=== PATIENT | female | born 1940 | race Caucasian/White ===

== ENCOUNTER 2020-06-07 12:58 | Outpatient (REF) | payer MEDICARE, OTHER, SELFPAY ==
[2020-06-07 13:45] LABS: MANUAL DIFF FLAG NO
[2020-06-07 13:46] LABS: Basophils Percent Auto 0.2 % (0-2); Eosinophils Absolute Auto 0.1 X10*3/uL (0.0-0.4); Hematocrit 40.8 % (37-47); Hemoglobin 13.5 g/dl (12.0-16.0); Imm Gran Abs Auto 0.02 X10*3/uL (0.00-0.03); Imm Gran Pct Auto 0.2 % (0.0-0.4); Lymphocytes Absolute Auto 1.3 X10*3/uL (1.2-4.9); Lymphocytes Percent Auto 16.4 % (20-40); Mean Corpuscular HGB Conc 33.1 g/dl (31.0-35.0); Mean Corpuscular Hemoglobin 31.5 pg (27.0-33.0); Mean Corpuscular Volume 95.1 fL (80-98); Mean Platelet Volume 9.7 fL (9.4-12.3); Monocytes Absolute Auto 0.6 X10*3/uL (0.1-1.2); Monocytes Percent Auto 7.6 % (2-11); Neutrophils Percent Auto 74.6 % (45-73); Platelet Count 296 X10*3/uL (160-400); Red Blood Count 4.29 X10*6/uL (4.20-5.50); Red Cell Distribution Width 13.9 % (11.0-16.0)
[2020-06-07 14:34] LABS: Erythrocyte Sedimentation Rate 20 MM/HR (0-20)
[2020-06-07 14:57] LABS: Alanine Aminotransferase 26 U/L (0-31); Albumin Level 3.8 g/dL (3.5-5.0); Alkaline Phosphatase 123 U/L (39-117); Anion Gap 12 (12-20); Aspartate Amino Transferase 23 U/L (5-31); Bilirubin Total 0.4 mg/dL (0.0-1.0); Blood Urea Nitrogen 20 mg/dL (9-16); C Reactive Protein 0.22 mg/dL (< or = 0.50); Calcium 8.9 mg/dL (8.4-10.2); Carbon Dioxide 26 mmol/L (22-29); Chloride 107 mmol/L (96-108); Estimated Glomerular Filt Rate > 60; Glucose Random 85 mg/dL (60-115); Potassium 3.9 mmol/l (3.3-5.1); Sodium 141 mmol/L (135-145); Total Protein 6.3 g/dL (6.5-8.0)
== END 2020-06-07 12:59 | disposition home or self-care (01) ==
LOC: HO.LAB 12:58
PROVIDERS: PCP Internal Medicine; Visit Provider Student in an Organized Health Care Education/Training Program
DX: M05.9 Rheumatoid arthritis with rheumatoid factor, unspecified (principal); Z79.899 Other long term (current) drug therapy
CPT/HCPCS: 36415; 80053; 85025; 85652; 86140

== ENCOUNTER → 2020-06-14 14:23 | Outpatient (BNVA) | payer MEDICARE, SELFPAY | PROVIDERS: PCP Internal Medicine; Referring Provider Internal Medicine; Visit Provider Student in an Organized Health Care Education/Training Program | DX: M05.9 Rheumatoid arthritis with rheumatoid factor, unspecified (principal); Z79.899 Other long term (current) drug therapy | CPT/HCPCS: 99212 ==

== ENCOUNTER → 2020-09-20 09:59 | Outpatient (BNVA) | payer MEDICARE, SELFPAY | PROVIDERS: Visit Provider Student in an Organized Health Care Education/Training Program | DX: M05.9 Rheumatoid arthritis with rheumatoid factor, unspecified (principal); Z79.899 Other long term (current) drug therapy | CPT/HCPCS: 99212 ==

== ENCOUNTER 2020-09-28 13:45 | Outpatient (REF) | payer MEDICARE, OTHER, SELFPAY ==
[2020-09-28 14:52] LABS: MANUAL DIFF FLAG NO
[2020-09-28 14:53] LABS: Basophils Percent Auto 0.3 % (0-2); Eosinophils Absolute Auto 0.1 X10*3/uL (0.0-0.4); Eosinophils Percent Auto 0.7 % (0-4); Hemoglobin 13.6 g/dl (12.0-16.0); Imm Gran Abs Auto 0.01 X10*3/uL (0.00-0.03); Imm Gran Pct Auto 0.1 % (0.0-0.4); Lymphocytes Absolute Auto 1.6 X10*3/uL (1.2-4.9); Lymphocytes Percent Auto 24.3 % (20-40); Mean Corpuscular HGB Conc 32.4 g/dl (31.0-35.0); Mean Corpuscular Hemoglobin 30.2 pg (27.0-33.0); Mean Corpuscular Volume 93.1 fL (80-98); Mean Platelet Volume 9.7 fL (9.4-12.3); Monocytes Absolute Auto 0.6 X10*3/uL (0.1-1.2); Monocytes Percent Auto 8.3 % (2-11); Neutrophils Absolute Auto 4.5 X10*3/uL (2.0-8.3); Neutrophils Percent Auto 66.3 % (45-73); Platelet Count 307 X10*3/uL (160-400); Red Blood Count 4.51 X10*6/uL (4.20-5.50); White Blood Count 6.7 X10*3/uL (4.8-10.8)
[2020-09-28 15:19] LABS: Alanine Aminotransferase 15 U/L (0-31); Albumin Level 4.1 g/dL (3.5-5.0); Alkaline Phosphatase 121 U/L (39-117); Anion Gap 13 (12-20); Aspartate Amino Transferase 16 U/L (5-31); Bilirubin Total 0.7 mg/dL (0.0-1.0); Blood Urea Nitrogen 23 mg/dL (9-16); C Reactive Protein 0.08 mg/dL (< or = 0.50); Calcium 9.8 mg/dL (8.4-10.2); Carbon Dioxide 26 mmol/L (22-29); Chloride 105 mmol/L (96-108); Estimated Glomerular Filt Rate > 60; Glucose Random 87 mg/dL (60-115); Potassium 4.9 mmol/L (3.3-5.1); Sodium 139 mmol/L (135-145); Total Protein 6.7 g/dL (6.5-8.0)
[2020-09-28 15:26] LABS: Glucose Urine UA NEG (NEG); Leukocyte Esterase Urine NEG (NEG); Nitrite Urine NEG (NEG); Specific Gravity - Urine 1.025 (1.005-1.025); Urine Blood NEG (NEG); Urine Ketones NEG (NEG); Urine Protein NEG (NEG-TRACE)
[2020-09-28 16:09] LABS: Erythrocyte Sedimentation Rate 14 MM/HR (0-20)
[2020-09-28 16:10] LABS: Appearance Urine CLEAR; Color Urine YELLOW
[2020-09-28 17:00] LABS: RBC Urine 0 /HPF (0); Squamous Epithelial Cell Urine 2+ /LPF
[2020-09-28 17:01] LABS: Renal Epithelial Cells Urine 1+ /LPF
== END 2020-09-28 13:46 | disposition home or self-care (01) ==
LOC: HO.LAB 13:45
PROVIDERS: PCP Internal Medicine; Visit Provider Student in an Organized Health Care Education/Training Program
DX: M05.9 Rheumatoid arthritis with rheumatoid factor, unspecified (principal)
CPT/HCPCS: 36415; 80053; 81001; 85025; 85652; 86140

== ENCOUNTER 2021-01-26 11:00 | Outpatient (REF) | payer MEDICARE, SELFPAY ==
[2021-01-26 12:17] LABS: MANUAL DIFF FLAG NO
[2021-01-26 12:20] LABS: Basophils Percent Auto 0.2 % (0-2); Eosinophils Absolute Auto 0.1 X10*3/uL (0.0-0.4); Eosinophils Percent Auto 1.7 % (0-4); Hematocrit 41.1 % (37-47); Hemoglobin 13.7 g/dl (12.0-16.0); Imm Gran Abs Auto 0.01 X10*3/uL (0.00-0.03); Imm Gran Pct Auto 0.2 % (0.0-0.4); Lymphocytes Absolute Auto 1.3 X10*3/uL (1.2-4.9); Lymphocytes Percent Auto 24.8 % (20-40); Mean Corpuscular HGB Conc 33.3 g/dl (31.0-35.0); Mean Corpuscular Hemoglobin 31.6 pg (27.0-33.0); Mean Corpuscular Volume 94.9 fL (80-98); Mean Platelet Volume 9.4 fL (9.4-12.3); Monocytes Absolute Auto 0.3 X10*3/uL (0.1-1.2); Monocytes Percent Auto 6.2 % (2-11); Neutrophils Absolute Auto 3.5 X10*3/uL (2.0-8.3); Neutrophils Percent Auto 66.9 % (45-73); Platelet Count 289 X10*3/uL (160-400); Red Blood Count 4.33 X10*6/uL (4.20-5.50); Red Cell Distribution Width 14.6 % (11.0-16.0); White Blood Count 5.2 X10*3/uL (4.8-10.8)
[2021-01-26 14:09] LABS: Alanine Aminotransferase 20 U/L (0-31); Alkaline Phosphatase 137 U/L (39-117); Anion Gap 12 (12-20); Aspartate Amino Transferase 25 U/L (5-31); Bilirubin Total 0.4 mg/dL (0.0-1.0); Blood Urea Nitrogen 25 mg/dL (9-16); C Reactive Protein 0.17 mg/dL (< or = 0.50); Calcium 9.8 mg/dL (8.4-10.2); Carbon Dioxide 27 mmol/L (22-29); Chloride 107 mmol/L (96-108); Estimated Glomerular Filt Rate > 60; Glucose Random 78 mg/dL (60-115); Potassium 4.6 mmol/L (3.3-5.1); Sodium 141 mmol/L (135-145); Total Protein 6.6 g/dL (6.5-8.0)
== END 2021-01-26 11:01 | disposition home or self-care (01) ==
LOC: HO.LAB 11:00
PROVIDERS: PCP Internal Medicine; Visit Provider Student in an Organized Health Care Education/Training Program
DX: M05.9 Rheumatoid arthritis with rheumatoid factor, unspecified (principal)
CPT/HCPCS: 36415; 80053; 85025; 86140

== ENCOUNTER → 2021-01-31 11:10 | Outpatient (BNVA) | payer MEDICARE, SELFPAY | PROVIDERS: PCP Internal Medicine; Visit Provider Student in an Organized Health Care Education/Training Program | DX: M05.9 Rheumatoid arthritis with rheumatoid factor, unspecified (principal); Z79.899 Other long term (current) drug therapy | CPT/HCPCS: 99212 ==

== ENCOUNTER 2021-11-05 10:27 | Outpatient (REF) | payer MEDICARE, SELFPAY ==
[2021-11-05 11:55] LABS: MANUAL DIFF FLAG NO
[2021-11-05 12:26] LABS: Basophils Percent Auto 0.2 % (0-2); Eosinophils Percent Auto 0.3 % (0-4); Hematocrit 41.9 % (37.0-47.0); Hemoglobin 13.8 g/dl (12.0-16.0); Imm Gran Abs Auto 0.02 X10*3/uL (0.00-0.03); Imm Gran Pct Auto 0.3 % (0.0-0.4); Lymphocytes Absolute Auto 1.3 X10*3/uL (1.2-4.9); Lymphocytes Percent Auto 21.6 % (20-40); Mean Corpuscular HGB Conc 32.9 g/dl (31.0-35.0); Mean Corpuscular Hemoglobin 31.7 pg (27.0-33.0); Mean Corpuscular Volume 96.1 fL (80.0-98.0); Mean Platelet Volume 9.5 fL (9.4-12.3); Monocytes Absolute Auto 0.3 X10*3/uL (0.1-1.2); Monocytes Percent Auto 5.8 % (2-11); Neutrophils Absolute Auto 4.2 x10*3/uL (2.0-8.3); Neutrophils Percent Auto 71.8 % (45-73); Platelet Count 343 X10*3/uL (160-400); Red Blood Count 4.36 X10*6/uL (4.20-5.50); Red Cell Distribution Width 14.3 % (11.0-16.0); White Blood Count 5.8 X10*3/uL (4.8-10.8)
[2021-11-05 13:10] LABS: Erythrocyte Sedimentation Rate 27 MM/HR (0-20)
[2021-11-05 13:23] LABS: Alanine Aminotransferase 19 U/L (0-31); Aspartate Amino Transferase 21 U/L (5-31); C Reactive Protein 0.65 mg/dL (< or = 0.50); Estimated Glomerular Filt Rate > 60
== END 2021-11-05 10:28 | disposition home or self-care (01) ==
LOC: HO.LAB 10:27
PROVIDERS: PCP Internal Medicine; Visit Provider Internal Medicine Rheumatology
DX: M05.9 Rheumatoid arthritis with rheumatoid factor, unspecified (principal); M81.0 Age-related osteoporosis without current pathological fracture; R26.81 Unsteadiness on feet; Z79.899 Other long term (current) drug therapy
CPT/HCPCS: 36415; 82565; 84450; 84460; 85025; 85652; 86140; 99212

== ENCOUNTER → 2022-04-22 10:11 | Outpatient (BNVA) | payer MEDICARE, SELFPAY | PROVIDERS: PCP Internal Medicine; Visit Provider Internal Medicine Rheumatology | DX: M05.9 Rheumatoid arthritis with rheumatoid factor, unspecified (principal); M81.0 Age-related osteoporosis without current pathological fracture; R26.81 Unsteadiness on feet; R11.0 Nausea; Z79.899 Other long term (current) drug therapy | CPT/HCPCS: 99212 ==

== ENCOUNTER 2022-06-18 12:22 | Outpatient (REF) | payer MEDICARE, SELFPAY ==
[2022-06-18 13:34] LABS: MANUAL DIFF FLAG NO
[2022-06-18 13:39] LABS: Basophils Percent Auto 0.3 % (0-2); Eosinophils Absolute Auto 0.1 X10*3/uL (0.0-0.4); Hematocrit 42.5 % (37.0-47.0); Hemoglobin 14.1 g/dl (12.0-16.0); Imm Gran Abs Auto 0.02 X10*3/uL (0.00-0.03); Imm Gran Pct Auto 0.3 % (0.0-0.4); Lymphocytes Absolute Auto 1.5 X10*3/uL (1.2-4.9); Lymphocytes Percent Auto 25.8 % (20-40); Mean Corpuscular HGB Conc 33.2 g/dl (31.0-35.0); Mean Corpuscular Hemoglobin 31.5 pg (27.0-33.0); Mean Corpuscular Volume 94.9 fL (80.0-98.0); Mean Platelet Volume 9.6 fL (9.4-12.3); Monocytes Absolute Auto 0.4 X10*3/uL (0.1-1.2); Monocytes Percent Auto 6.4 % (2-11); Neutrophils Absolute Auto 3.9 x10*3/uL (2.0-8.3); Neutrophils Percent Auto 66.2 % (45-73); Platelet Count 357 X10*3/uL (160-400); Red Blood Count 4.48 X10*6/uL (4.20-5.50); Red Cell Distribution Width 13.5 % (11.0-16.0); White Blood Count 5.9 X10*3/uL (4.8-10.8)
[2022-06-18 13:56] LABS: Alanine Aminotransferase 14 U/L (0-31); Aspartate Amino Transferase 19 U/L (5-31); C Reactive Protein 0.12 mg/dL (< or = 0.50); Estimated Glomerular Filt Rate > 60
[2022-06-18 14:29] LABS: Erythrocyte Sedimentation Rate 23 MM/HR (0-20)
== END 2022-06-18 12:23 | disposition home or self-care (01) ==
LOC: HO.10HDL 12:22
PROVIDERS: Visit Provider Internal Medicine Rheumatology
DX: M05.9 Rheumatoid arthritis with rheumatoid factor, unspecified (principal); M81.0 Age-related osteoporosis without current pathological fracture; L30.9 Dermatitis, unspecified; Z79.899 Other long term (current) drug therapy
CPT/HCPCS: 36415; 82565; 84450; 84460; 85025; 85652; 86140; 99212

== ENCOUNTER 2022-11-01 10:16 | Outpatient (REF) | payer MEDICARE, SELFPAY ==
[2022-11-01 10:34] LABS: MANUAL DIFF FLAG NO
[2022-11-01 11:06] LABS: Basophils Percent Auto 0.4 % (0-2); Eosinophils Absolute Auto 0.1 X10*3/uL (0.0-0.4); Eosinophils Percent Auto 2.1 % (0-4); Hematocrit 44.7 % (37.0-47.0); Hemoglobin 14.8 g/dl (12.0-16.0); Imm Gran Abs Auto 0.01 X10*3/uL (0.00-0.03); Imm Gran Pct Auto 0.2 % (0.0-0.4); Lymphocytes Absolute Auto 1.2 X10*3/uL (1.2-4.9); Lymphocytes Percent Auto 25.8 % (20-40); Mean Corpuscular HGB Conc 33.1 g/dl (31.0-35.0); Mean Corpuscular Hemoglobin 31.2 pg (27.0-33.0); Mean Corpuscular Volume 94.3 fL (80.0-98.0); Mean Platelet Volume 9.7 fL (9.4-12.3); Monocytes Absolute Auto 0.4 X10*3/uL (0.1-1.2); Monocytes Percent Auto 8.8 % (2-11); Neutrophils Percent Auto 62.7 % (45-73); Platelet Count 239 X10*3/uL (160-400); Red Blood Count 4.74 X10*6/uL (4.20-5.50); Red Cell Distribution Width 14.2 % (11.0-16.0); White Blood Count 4.8 X10*3/uL (4.8-10.8)
[2022-11-01 11:25] LABS: Alanine Aminotransferase 12 U/L (0-31); Aspartate Amino Transferase 18 U/L (5-31); C Reactive Protein < 0.10 mg/dL (< or = 0.50); Estimated Glomerular Filt Rate > 60
[2022-11-01 11:56] LABS: Erythrocyte Sedimentation Rate 19 MM/HR (0-20)
== END 2022-11-01 10:17 | disposition home or self-care (01) ==
LOC: HO.LAB 10:16
PROVIDERS: Visit Provider Internal Medicine Rheumatology
DX: M05.9 Rheumatoid arthritis with rheumatoid factor, unspecified (principal); Z79.899 Other long term (current) drug therapy
CPT/HCPCS: 36415; 82565; 84450; 84460; 85025; 85652; 86140

== ENCOUNTER 2023-03-10 12:02 | Outpatient (AMB) | payer MEDICARE, SELFPAY ==
--- NOTE | 2023-03-10 12:04 | MHC.OFFVIS ---
Intake Intake Visit Reasons: Hx of kidney stones Intake Note: New Patient presents for initial visit for history of incontinence Urology Medications: none Blood thinner: aspirin PVR: 0ml's Talent Manager Required: No Accompanied by: Self / Same As Patient Allergies wine spirit Allergy (Severe, Verified 03/10/23 12:32) triangle rash on codeine Allergy (Intermediate, Verified 03/10/23 12:32) Vomiting penicillin V Allergy (Intermediate, Verified 03/10/23 12:32) Rash mold Allergy (Intermediate, Uncoded 03/10/23 12:32) Rash mildew Allergy (Mild, Uncoded 03/10/23 12:32) rash Medication List - Last Reconciled 03/10/23 by MARY Bernal- alendronate 70 mg PO QWEEK aspirin 81 mg PO DAILY atorvastatin 40 mg PO BEDTIME cane As directed folic acid 1 mg PO DAILY loratadine 10 mg PO DAILY PRN losartan 50 mg PO DAILY methotrexate sodium 15 mg (6 x 2.5 mg) PO QWEEK triamcinolone acetonide 0.1% 1 appl topical BID HPI HPI Comments History of Present Illness Details Yuly is a very pleasant 82-year-old female patient of Dr. Petty. She has a past medical history of allergic rhinitis, history of CT stented in 2019, hyperlipidemia, hypertension, osteoporosis, seropositive rheumatoid arthritis, and unsteady gait. She presents to the office today as a new patient for history of nephrolithiasis and urinary incontinence. In discussion with the patient today she reports having had multiple urologists in the past including Dr. Casanova as well as Dr. Davalos. She discusses having had a a an office cystoscopy in the past however does not recall exactly why this was performed. She denies any previous surgical history for nephrolithiasis. She reports noting worsening urinary incontinence over the last 3 years. She reports utilizing approximately 3 Guillermina pads and liners a day. She denies having trialed any lifestyle modifications and or medications in the past. When asked she denies hematuria, dysuria, foul smelling urine, changes to urinary stream, flank pain, fever, and or chills. In office urinalysis with 2+ leukocytes positive nitrates. PVR 0 mL. Discussed obtaining retroperitoneal ultrasound for further assessment evaluation. Will send for urine for urine culture. Discussed possible near future in office cystoscopy if symptoms persist and/or worsen. Discussed at length lifestyle modifications, pelvic floor therapy, and or trial of medications. She otherwise offers no issues or concerns at this time. [facility] Medical History Allergic rhinitis History of CT (myocardial infarction) Hyperlipidemia Hypertension Osteoporosis Seropositive rheumatoid arthritis Unsteady gait Surgical History (Updated 11/05/21 @ 10:52 by Jun Lucero MD) History of parathyroidectomy History of right hemicolectomy Social History Alcohol intake: current Patient Tobacco Use Status: Former Tobacco user Tobacco use type: Cigarette Review of Systems Const Reports as per HPI Eyes Reports no additional complaints ENT Reports no additional complaints Card Reports as per HPI Resp Reports no additional complaints GI Reports no additional complaints Reports as per HPI Musc Reports as per HPI Neuro Reports as per HPI Psych Reports no additional complaints Endo Reports no additional complaints Aller/Immun Reports as per HPI Physical Exam Const General: cooperative, healthy appearing, comfortable, no acute distress, well developed, alert and awake Orientation/consciousness: patient oriented x3 Limitations: ambulation with cane HEENT Head: Yes normal to inspection, Yes normocephalic and Yes atraumatic Ears: hearing grossly normal bilaterally Eyes General: appearance normal, both eyes and all related structures Neck Neck: Yes normal visual inspection and Yes trachea midline Chest Chest palpation & inspection: normal inspection of the chest Resp Effort & Inspection: normal respiratory effort and able to speak in complete sentences Cardio Rate: regular rate GI Inspection: Yes normal to inspection General: Yes no CVA tenderness Back/Spine/Pelvis Back: no CVA tenderness Skin General skin exam: no rashes or lesions noted Neuro General: patient oriented x3 Extrem General: Yes normal to inspection Psych Appearance: grossly normal and well kempt Mental Status: mental status grossly normal Speech and movement: Normal speech and movement present and Clear speech present Affect: normal affect Attitude: cooperative Thought process: Normal thought process present Thought content: Normal thought content present Insight: Good insight present (Psych) Judgement: Good judgement present (Psych) Office Procedures Post Void Residual Post Residual Void Post Void Residual (PVR): 0 24427-[id number] Void Residual by ultrasound Results AMB Urinalysis, Automated UA Leukoctes 125 Opal/uL Last Edit by Eduardo Villa on 03/10/23 12:27 UA Nitrite Last Edit by Brandyce Allen on 03/10/23 12:27 UA Urobilinogen 0.2 mg/dL Last Edit by Axxess Pharmayce Brepedro on 03/10/23 12:27 UA Protein 0 mg/dL Last Edit by Brandyce Allen on 03/10/23 12:27 UA pH 6.0 Last Edit by Axxess Pharmayce Bress on 03/10/23 12:27 UA Blood 0 Jair/uL Last Edit by Axxess Pharmayce Brepedro on 03/10/23 12:27 UA Specific [place] 1.015 Last Edit by Axxess Pharmayce Brepedro on 03/10/23 12:27 UA Ketone Negative Last Edit by Axxess Pharmayce IndexTankpedro on 03/10/23 12:27 UA Bilirubin 0 mg/dL Last Edit by Axxess Pharmavirgie Villa on 03/10/23 12:27 UA Glucose 0 mg/dL Last Edit by Axxess Pharmaycwalter Villa on 03/10/23 12:27 Results Reviewed Results Reviewed: Laboratory Last Values Urine pH (Auto) 6.0 03/10/23 12:25 Specific [place] (Auto) 1.015 03/10/23 12:25 Urine Protein (Auto) 0 mg/dL 03/10/23 12:25 Glucose (UA)(Auto) 0 mg/dL 03/10/23 12:25 Urine Ketones (Auto) Negative 03/10/23 12:25 Urine Blood (Auto) 0 Jair/uL 03/10/23 12:25 Urine Bilirubin (Auto) 0 mg/dL 03/10/23 12:25 Urine Urobilinogen (Auto) 0.2 mg/dL 03/10/23 12:25 Leukocyte Esterase (Auto) 125 Opal/uL 03/10/23 12:25 Assessment & Plan Assessment & Plan (1) Urinary incontinence: Code(s): R32 - Unspecified urinary incontinence (2) Nephrolithiasis: Code(s): N20.0 - Calculus of kidney (3) Urinary tract infection: Code(s): N39.0 - Urinary tract infection, site not specified Plan In office urinalysis results reviewed with the patient today; as noted above. Will send for urine culture. Discussed at length lifestyle modifications, pelvic floor therapy, and or medications to assist with urinary incontinence. Will obtain retroperitoneal ultrasound for further assessment evaluation. Start tolterodine 2 mg daily as discussed and prescribed. Patient denies any UTI like symptoms at this time will await culture results to treat if needed. Discussed at length importance of drinking plenty of water daily. Follow-up in 6 weeks with PVR and imaging to be completed prior; or sooner with any questions, concerns, and or issues. Orders: Orders Urine Culture Today R32 - Unspecified urinary incontinence AMB Urinalysis Automated Today Z13.9 - Encounter for screening, unspecified AMB Post Void Residual by ultrasound Today Z13.9 - Encounter for screening, unspecified Medications: New tolterodine ER 2 mg PO DAILY 30 days 30 caps 1RF R39.15 - Urgency of urination Patient Instructions: The patient had an opportunity to ask questions regarding the treatment plan. All questions were answered. Physical exam, labs, and imaging were discussed and reviewed in detail. As well as risks, benefits, and discussion of treatment choices. No major barriers to understanding were identified. The patient expressed understanding and agreement with the above treatment plan. The patient was made aware they should contact our office by phone for worsening of their current condition, the appearance of new symptoms, or with any questions or concerns. Compliance is encouraged with any medications and follow up testing that is ordered. It is a privilege to be allowed the opportunity to participate in? your urological care.? Again, if you have any questions or concerns If you have any questions or concerns please do not hesitate to contact me. The office is [phone]. This note is constructed using voice recognition software. While every effort has been made to ensure accuracy feeder switchboard operator errors may have been included. Yours sincerely, EWA Bernal Coding Level of Care Code New Pt Level 4 (36469) Diagnoses Urinary incontinence R32 Nephrolithiasis N20.0 Urinary tract infection N39.0 CPT Codes Post Residual Void - PVR CPT Code: 81247-Ykgv Void Residual by ultrasound ([id number])
== END 2023-03-10 13:25 | disposition home or self-care (01) ==
PROVIDERS: PCP Internal Medicine; Visit Provider Nurse Practitioner Family
DX: R32 Unspecified urinary incontinence (principal); N20.0 Calculus of kidney; N39.0 Urinary tract infection, site not specified
CPT/HCPCS: 99204

== ENCOUNTER 2023-03-10 12:02 | Outpatient (REF) | payer MEDICARE, SELFPAY | END 2023-03-10 12:03 | disposition home or self-care (01) | LOC: HO.LNP 12:02 | PROVIDERS: PCP Internal Medicine; Visit Provider Nurse Practitioner Family | DX: R32 Unspecified urinary incontinence (principal); N20.0 Calculus of kidney; N39.0 Urinary tract infection, site not specified | CPT/HCPCS: 51798; 87086; 87088; 87186; 99202 ==

== ENCOUNTER 2023-03-31 10:37 | Outpatient (AMB) | payer MEDICARE, SELFPAY ==
--- NOTE | 2023-03-31 10:43 | A.OFFVIS_ITS ---
Intake Vital Signs 03/31/23 10:44 Height 5 ft 3 in Weight 123 lb 10.869 oz BMI 21.9 BP 118/78 Blood Pressure Location Rt brachial Position Sitting Pulse 68 Pulse Source Pulse Oximeter Temp 98.1 F Temp Source Skin Pulse Oximetry (%) 93 Oxygen Delivery Method Room Air Intake Visit Reasons: RA Intake Note: Here to follow up on RA. c/o new distortions on fingers. New bumps on fingers. 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 I had last seen her in June. We have her up to 15 mg weekly methotrexate. She reports still stiffness and swelling in her hands. She is concerned that this could represent irreversible deformities. Most symptomatic is the right hand more than the left hand particularly across the MCP joints. She also has pains in the feet and the ankles. She has been seeing Urology recently because of recurrent UTI. [facility] Medical History Allergic rhinitis History of [place] (myocardial infarction) Hyperlipidemia Hypertension Osteoporosis Seropositive rheumatoid arthritis Unsteady gait Surgical History History of parathyroidectomy History of right hemicolectomy Social History Alcohol intake: current Patient Tobacco Use Status: Former Tobacco user Tobacco use type: Cigarette Review of Systems Const Details: Negative for appetite change, weight change, fever, chills, malaise and fatigue Eyes Details: Negative for vision change, dry eyes,headaches and dizziness ENT Details: Negative for hearing change, tinnitus, oral ulcer, nose bleeds and oral dryness. Card Details: Negative chest pain, edema and syncope Resp Details: Negative for SOB, cough and wheezing GI Details: Negative indigestion/heartburn, nausea, abdominal pain, bowel changes, diarrhea, constipation and bloody stool. Details: Some recurrent UTI recently re-treated. Presently negative for dysuria, hematuria, nocturia, decreased force/flow and genital discharge Endo Details: Negative for polyuria and polydypsia Rubin/Lymph Details: Negative for excessive bruising or bleeding. Physical Exam Vital Signs: Last Vital Signs Temp 98.1 F 03/31/23 10:44 Pulse 68 03/31/23 10:44 BP 118/78 03/31/23 10:44 Pulse Ox 93 03/31/23 10:44 Oxygen Delivery Method Room Air 03/31/23 10:44 BMI result Body Mass Index 21.9 APPEARANCE: Patient in no acute distress EYES no redness, pupils equal and reactive to light, eyelids normal SKIN: No inflammatory or neoplastic lesions. Normal color and turgor JOINT EXAM: Cervical Spine:.? Full range of motion with slight discomfort.? No tenderness. Thoracic Spine:.? No scoliosis.? No tenderness on palpation. Lumbar Spine:.? Alignment normal.? Mild pain with extremes of motion.? No tenderness. Chest Wall:.? No tenderness, swelling, increased warmth or erythema. Hands:? Right:? There is mild tenderness and mild to moderate swelling in all of the MCP joints. There is some flexion deformity and ulnar deviation as well.? There is some soft tissue swelling and bony enlargement in the PIP joints. The 2nd and through 4th have mild tenderness. There is mild bony enlargement tenderness at the 3rd and 5th D IP joints.? No flexor tendon triggering, thenar atrophy or sensory loss.? Left:? Mild pain with range of motion at the thumb and 5th finger.? There is mild swelling with ulnar deviations of all the MCP joints, these are all mildly tender today.? There is mild soft tissue swelling of the 2nd, 3rd and 4th PIP's and in the 5th there is mild tenderness.? There is no flexor tendon triggering or tenderness, thenar atrophy or sensory loss. Wrists:? Mild pain with flexion extension at 75 degrees with some mild tenderness but no swelling, increased warmth or erythema. Elbows:. Normal pain-free range of motion without tenderness, swelling, increased warmth or erythema. Shoulders:.?? Full range of motion without pain. No tenderness, weakness, swelling, increased warmth or erythema. Hips:? Right:? Slight decrease in extremes of internal external rotation but no pain with motion.? No groin tenderness or mass.? Left:? Full range of motion w ithout pain. Hip bursa:.? No tenderness. Knees:?? Normal pain-free range of motion with mild patellofemoral crepitus.? There is some slight medial tenderness but no effusion, soft tissue swelling, increased warmth or erythema.? Ankles:? Normal pain-free range of motion with mild medial lateral tenderness but no swelling, increased warmth or erythema. Feet:? Mild 1st MTP bony enlargement bilaterally without tenderness.? The other joints in the foot have normal pain-free range of motion without tenderness, swelling, increased warmth or erythema. Tender points:? No tenderness to digital palpation at the occiput, trapezius, second rib, lateral epicondyle, knees, greater trochanter and gluteal area bilaterally. ? Results Reviewed Results Reviewed: The 02/07/2023 lab work from [facility]: Hemoglobin 13.5, white count 7.1, creatinine 0.68, SGOT 20, SGPT 23 Assessment & Plan Assessment & Plan (1) long term care social worker methotrexate user: Code(s): Z79.899 - Other senior living (current) drug therapy (2) Seropositive rheumatoid arthritis: Comment: Onset 2013.RF, SUJEY, CCP, SS-A pos GI ulcer on Plaquenil -stopped. leflunomide caused BP elevation - stopped. methotrexate started early 2020 Code(s): M05.9 - Rheumatoid arthritis with rheumatoid factor, unspecified Plan Rheumatoid arthritis, longstanding with still quite a bit of tenderness in the MCP joints. She says she is able to do housework and take care of herself at this point. She has had some recent urinary tract infection which makes us not confident about adding more immunosuppression with a TNF inhibitor. I think we will see if the blood work looks okay today and possibly increase the methotrexate further. She was warned that she needs to be diligent about blood work so we can monitor her for side effects. She will get blood work today and if that looks okay we will consider increasing her methotrexate. Follow-up in 2 months with blood work before that is recommended. Orders: Orders Alanine Aminotransferase Today M05.9 - Rheumatoid arthritis with rheumatoid factor, unspecified, Z79.899 - Other long term care social worker (current) drug therapy Aspartate Amino Transferase Today M05.9 - Rheumatoid arthritis with rheumatoid factor, unspecified, Z79.899 - Other long term care social worker (current) drug therapy Creatinine Today M05.9 - Rheumatoid arthritis with rheumatoid factor, unspecified, Z79.899 - Other long term care social worker (current) drug therapy C Reactive Protein Today M05.9 - Rheumatoid arthritis with rheumatoid factor, unspecified Complete Blood Count Auto Diff Today M05.9 - Rheumatoid arthritis with rheumatoid factor, unspecified, Z79.899 - Other long term care social worker (current) drug therapy Erythrocyte Sedimentation Rate Today M05.9 - Rheumatoid arthritis with rheumatoid factor, unspecified Alanine Aminotransferase Today M05.9 - Rheumatoid arthritis with rheumatoid factor, unspecified, Z79.899 - Other long term care social worker (current) drug therapy Aspartate Amino Transferase Today M05.9 - Rheumatoid arthritis with rheumatoid factor, unspecified, Z79.899 - Other senior living (current) drug therapy Creatinine Today M05.9 - Rheumatoid arthritis with rheumatoid factor, unspecified, Z79.899 - Other long term care social worker (current) drug therapy C Reactive Protein Today M05.9 - Rheumatoid arthritis with rheumatoid factor, unspecified Complete Blood Count Auto Diff Today M05.9 - Rheumatoid arthritis with rheumatoid factor, unspecified, Z79.899 - Other senior living (current) drug therapy Erythrocyte Sedimentation Rate Today M05.9 - Rheumatoid arthritis with rheumatoid factor, unspecified Medications: Changed From methotrexate sodium 15 mg (6 x 2.5 mg) PO QWEEK 24 tabs 0RF M05.9 - Rheumatoid arthritis with rheumatoid factor, unspecified To methotrexate sodium 20 mg (8 x 2.5 mg) PO QWEEK 32 tabs 1RF M05.9 - Rheumatoid arthritis with rheumatoid factor, unspecified Coding Level of Care Code Est Pt Level 3 (22630) Diagnoses half-way methotrexate user Z79.899 Seropositive rheumatoid arthritis M05.9
[2023-03-31 10:44] VITALS: BP 118/78; PULSE 68; TEMP 36.7; O2SAT 93; BMI 21.9
== END 2023-03-31 11:30 | disposition home or self-care (01) ==
LOC: HO.RHE 10:37
PROVIDERS: PCP Internal Medicine; Visit Provider Internal Medicine Rheumatology
DX: M05.79 Rheumatoid arthritis with rheumatoid factor of multiple sites without organ or systems involvement (principal); Z79.899 Other long term (current) drug therapy
CPT/HCPCS: 99214

== ENCOUNTER → 2023-03-31 10:37 | Outpatient (BNVA) | payer MEDICARE, SELFPAY | PROVIDERS: PCP Internal Medicine; Visit Provider Internal Medicine Rheumatology ==

== ENCOUNTER 2023-03-31 11:41 | Outpatient (REF) | payer MEDICARE, SELFPAY ==
[2023-03-31 13:11] LABS: MANUAL DIFF FLAG NO
[2023-03-31 13:21] LABS: Basophils Percent Auto 0.3 % (0-2); Eosinophils Absolute Auto 0.1 X10*3/uL (0.0-0.4); Eosinophils Percent Auto 1.5 % (0-4); Hematocrit 41.3 % (37.0-47.0); Hemoglobin 13.6 g/dl (12.0-16.0); Imm Gran Abs Auto 0.01 X10*3/uL (0.00-0.03); Imm Gran Pct Auto 0.2 % (0.0-0.4); Lymphocytes Absolute Auto 1.3 X10*3/uL (1.2-4.9); Lymphocytes Percent Auto 20.4 % (20-40); Mean Corpuscular HGB Conc 32.9 g/dl (31.0-35.0); Mean Corpuscular Hemoglobin 31.9 pg (27.0-33.0); Mean Corpuscular Volume 96.9 fL (80.0-98.0); Monocytes Absolute Auto 0.5 X10*3/uL (0.1-1.2); Neutrophils Absolute Auto 4.6 x10*3/uL (2.0-8.3); Neutrophils Percent Auto 70.6 % (45-73); Platelet Count 325 X10*3/uL (160-400); Red Blood Count 4.26 X10*6/uL (4.20-5.50); White Blood Count 6.5 X10*3/uL (4.8-10.8)
[2023-03-31 13:31] LABS: Alanine Aminotransferase 24 U/L (0-31); Aspartate Amino Transferase 27 U/L (5-31); C Reactive Protein < 0.10 mg/dL (< or = 0.50); Estimated Glomerular Filt Rate > 60
[2023-03-31 14:09] LABS: Erythrocyte Sedimentation Rate 20 MM/HR (0-20)
== END 2023-03-31 11:42 | disposition home or self-care (01) ==
LOC: HO.10HDL 11:41
PROVIDERS: Visit Provider Internal Medicine Rheumatology
DX: M05.9 Rheumatoid arthritis with rheumatoid factor, unspecified (principal); Z79.899 Other long term (current) drug therapy
CPT/HCPCS: 36415; 82565; 84450; 84460; 85025; 85652; 86140

== ENCOUNTER 2023-05-22 13:25 | Outpatient (AMB) | payer MEDICARE, SELFPAY ==
--- NOTE | 2023-05-22 13:38 | A.OFFVIS_ITS ---
Intake Intake Visit Reasons: 6 week follow up/ PVR/ US Intake Note: Patient presents for follow up for incontinence Urology Medications: patient hasn't picked up toviaz yet Blood thinner: aspirin PVR:58ml's Gas Dispenser Required: No Accompanied by: Son Allergies wine spirit Allergy (Severe, Verified 05/22/23 18:08) triangle rash on codeine Allergy (Intermediate, Verified 05/22/23 18:08) Vomiting penicillin V Allergy (Intermediate, Verified 05/22/23 18:08) Rash mold Allergy (Intermediate, Uncoded 05/22/23 18:08) Rash mildew Allergy (Mild, Uncoded 05/22/23 18:08) rash Medication List - Last Reconciled 05/22/23 by MARY Bernal- alendronate 70 mg PO QWEEK aspirin 81 mg PO DAILY atorvastatin 40 mg PO BEDTIME cane As directed famotidine 20 mg PO BID PRN folic acid 1 mg PO DAILY loratadine 10 mg PO DAILY PRN losartan 50 mg PO DAILY methotrexate sodium 20 mg (8 x 2.5 mg) PO QWEEK tolterodine ER 2 mg PO DAILY 30 days triamcinolone acetonide 0.1% 1 appl topical BID HPI HPI Comments History of Present Illness Details Yuly is a very pleasant 83-year-old female patient of Dr. Petty was accompanied by her son at today's office visit. She has a past medical history of allergic rhinitis, history of ME stented in 2019, hyperlipidemia, hypertension, osteoporosis, seropositive rheumatoid arthritis, and unsteady gait. She presents to the office today for a follow up. Of note, patient was seen approximately 2 months ago as a new patient for history of nephrolithiasis and urinary incontinence at which time a retroperitoneal ultrasound was ordered and the patient was started on Toviaz. In discussion with the patient today she reports to not have had imaging performed as she has been in and out of the hospital at [facility] for ongoing lower back/spine pain. She reports having gone to the pharmacy and being told Toviaz would be approximately 100 dollars for one-month supply and she is not able to afford this. She reports having had multiple urologists in the past including Dr. Casanova as well as Dr. Davalos. She discusses having had a a an office cystoscopy in the past however does not recall exactly why this was performed. She denies any previous surgical history for nephrolithiasis. She reports noting worsening urinary incontinence over the last 3 years. She reports utilizing approximately 3 Guillermina pads and liners a day. She denies having trialled any lifestyle modifications and or medications in the past. When asked she denies hematuria, dysuria, foul smelling urine, changes to urinary stream, flank pain, fever, and or chills. In office urinalysis results reviewed with the patient today. PVR 54 mL. Discussed importance of obtaining retroperitoneal ultrasound for further assessment evaluation. Discussed possible near future in office cystoscopy if symptoms persist and/or worsen. Discussed at length lifestyle modifications, pelvic floor therapy, and or trial of medications. She otherwise offers no issues or concerns at this time. [facility] Medical History Unsteady gait Hypertension History of ME (myocardial infarction) Osteoporosis Allergic rhinitis Hyperlipidemia Seropositive rheumatoid arthritis Surgical History History of right hemicolectomy History of parathyroidectomy Social History Alcohol intake: current Patient Tobacco Use Status: Former Tobacco user Tobacco use type: Cigarette Review of Systems Const Reports as per HPI Eyes Reports no additional complaints ENT Reports no additional complaints Card Reports as per [facility] Resp Reports no additional complaints GI Reports no additional complaints Reports as per HPI Musc Reports as per [facility] Neuro Reports as per HPI Psych Reports no additional complaints Endo Reports no additional complaints Aller/Immun Reports as per HPI Physical Exam Const General: cooperative, healthy appearing, comfortable, no acute distress, well developed, alert and awake Orientation/consciousness: patient oriented x3 Limitations: ambulation with cane HEENT Head: Yes normal to inspection, Yes normocephalic and Yes atraumatic Ears: hearing grossly normal bilaterally Eyes General: appearance normal, both eyes and all related structures Neck Neck: Yes normal visual inspection and Yes trachea midline Chest Chest palpation & inspection: normal inspection of the chest Resp Effort & Inspection: normal respiratory effort and able to speak in complete sentences Cardio Rate: regular rate GI Inspection: Yes normal to inspection General: Yes no CVA tenderness Back/Spine/Pelvis Back: no CVA tenderness Skin General skin exam: no rashes or lesions noted Neuro General: patient oriented x3 Extrem General: Yes normal to inspection Psych Appearance: grossly normal and well kempt Mental Status: mental status grossly normal Speech and movement: Normal speech and movement present and Clear speech present Affect: normal affect Attitude: cooperative Thought process: Normal thought process present Thought content: Normal thought content present Insight: Good insight present (Psych) Judgement: Good judgement present (Psych) Office Procedures Post Void Residual Post Residual Void Post Void Residual (PVR): 58 [id number]-[id number] Void Residual by ultrasound Results AMB Urinalysis, Automated UA Leukoctes 0 Opal/uL Last Edit by [employer] on 05/22/23 13:55 UA Nitrite Negative Last Edit by [employer] on 05/22/23 13:55 UA Urobilinogen 0.2 mg/dL Last Edit by [employer] on 05/22/23 13:55 UA Protein 15 mg/dL Last Edit by [employer] on 05/22/23 13:55 UA pH 6.0 Last Edit by [employer] on 05/22/23 13:55 UA Blood 0 Jair/uL Last Edit by [employer] on 05/22/23 13:55 UA Specific [place] 1.025 Last Edit by [employer] on 05/22/23 13:55 UA Ketone Negative Last Edit by [employer] on 05/22/23 13:55 UA Bilirubin 1 mg/dL Last Edit by [employer] on 05/22/23 13:55 UA Glucose 0 mg/dL Last Edit by [employer] on 05/22/23 13:55 Results Reviewed Results Reviewed: Laboratory Last Values Urine pH (Auto) 6.0 05/22/23 13:42 Specific [place] (Auto) 1.025 05/22/23 13:42 Urine Protein (Auto) 15 mg/dL 05/22/23 13:42 Glucose (UA)(Auto) 0 mg/dL 05/22/23 13:42 Urine Ketones (Auto) Negative 05/22/23 13:42 Urine Blood (Auto) 0 Jair/uL 05/22/23 13:42 Urine Nitrite (Auto) Negative 05/22/23 13:42 Urine Bilirubin (Auto) 1 mg/dL 05/22/23 13:42 Urine Urobilinogen (Auto) 0.2 mg/dL 05/22/23 13:42 Leukocyte Esterase (Auto) 0 Opal/uL 05/22/23 13:42 Assessment & Plan Assessment & Plan (1) Nephrolithiasis: Code(s): N20.0 - Calculus of kidney (2) Urinary incontinence: Code(s): R32 - Unspecified urinary incontinence Plan In office urinalysis results reviewed with the patient today; as noted above. PVR 54 mL. Discussed at length importance of obtaining retroperitoneal ultrasound for further assessment evaluation. Stop Toviaz Start Tolterodine 2mg daily as discussed and prescribed. Discussed at length lifestyle modifications, pelvic floor therapy, and or medications to assist with urinary incontinence. Discussed at length importance of drinking plenty of water daily. Follow-up in 6 weeks with PVR and imaging to be completed prior; or sooner with any questions, concerns, and or issues. Orders: Orders AMB Urinalysis Automated Today Z13.9 - Encounter for screening, unspecified AMB Post Void Residual by ultrasound Today N39.0 - Urinary tract infection, site not specified Medications: New tolterodine ER 2 mg PO DAILY 30 days 30 caps 1RF R39.15 - Urgency of urination Discontinued fesoterodine ER (Toviaz) Discontinued Reason: Doctor's Order 4 mg PO DAILY 30 days 30 tabs 1RF Patient Instructions: The patient had an opportunity to ask questions regarding the treatment plan. All questions were answered. Physical exam, labs, and imaging were discussed and reviewed in detail. As well as risks, benefits, and discussion of treatment choices. No major barriers to understanding were identified. The patient expressed understanding and agreement with the above treatment plan. The patient was made aware they should contact our office by phone for worsening of their current condition, the appearance of new symptoms, or with any questions or concerns. Compliance is encouraged with any medications and follow up testing that is ordered. It is a privilege to be allowed the opportunity to participate in? your urological care.? Again, if you have any questions or concerns If you have any questions or concerns please do not hesitate to contact me. The office is [phone]. This note is constructed using voice recognition software. While every effort has been made to ensure accuracy door installer errors may have been included. Yours sincerely, EWA Bernal Coding Level of Care Code Est Pt Level 3 (93076) Diagnoses Nephrolithiasis N20.0 Urinary incontinence R32 CPT Codes Post Residual Void - PVR CPT Code: 76000-Hwqo Void Residual by ultrasound ([id number])
== END 2023-05-22 14:12 | disposition home or self-care (01) ==
PROVIDERS: PCP Internal Medicine; Visit Provider Nurse Practitioner Family
DX: N20.0 Calculus of kidney (principal); R32 Unspecified urinary incontinence; Z13.9 Encounter for screening, unspecified
CPT/HCPCS: 99213

== ENCOUNTER → 2023-05-22 13:25 | Outpatient (BNVA) | payer MEDICARE, SELFPAY | PROVIDERS: PCP Internal Medicine; Visit Provider Nurse Practitioner Family | DX: N20.0 Calculus of kidney (principal); R32 Unspecified urinary incontinence | CPT/HCPCS: 51798; 81003; 99212 ==

== ENCOUNTER 2023-05-29 11:30 | Outpatient (AMB) | payer MEDICARE, SELFPAY ==
[2023-05-29 11:31] VITALS: BP 104/70; PULSE 97; TEMP 36.6; O2SAT 98; BMI 21.2
--- NOTE | 2023-05-29 11:31 | A.OFFVIS_ITS ---
Intake Vital Signs 05/29/23 11:31 Height 5 ft 3 in Weight 119 lb 14.903 oz BMI 21.2 BP 104/70 Blood Pressure Location Lt brachial Position Sitting Pulse 97 Pulse Source Pulse Oximeter Temp 97.9 F Temp Source Skin Pulse Oximetry (%) 98 Oxygen Delivery Method Room Air Intake Visit Reasons: ra Intake Note: Patient presents today to follow up on RA. Taking MTX 8 tabs wkly. Would like to discuss new treatment. [employer] Machine Operator Required: No Accompanied by: Self / Same As Patient Allergies wine spirit Allergy (Severe, Verified 05/29/23 11:35) triangle rash on codeine Allergy (Intermediate, Verified 05/29/23 11:35) Vomiting penicillin V Allergy (Intermediate, Verified 05/29/23 11:35) Rash mold Allergy (Intermediate, Uncoded 05/29/23 11:35) Rash mildew Allergy (Mild, Uncoded 05/29/23 11:35) rash Medication List - Last Reconciled 05/29/23 by Jun Lucero MD alendronate 70 mg PO QWEEK aspirin 81 mg PO DAILY atorvastatin 40 mg PO BEDTIME cane As directed famotidine 20 mg PO BID PRN folic acid 1 mg PO DAILY loratadine 10 mg PO DAILY PRN losartan 50 mg PO DAILY methotrexate sodium 20 mg (8 x 2.5 mg) PO QWEEK tolterodine ER 2 mg PO DAILY 30 days triamcinolone acetonide 0.1% 1 appl topical BID-TID HPI HPI Comments History of Present Illness Details The patient returns for evaluation of her rheumatoid arthritis and osteoporosis. She remains on 20 mg weekly methotrexate, folic acid 1 mg daily, alendronate 70 mg once a week and occasional [id number] naproxen. In general the joints have been reasonably comfortable. She does get some lateral hip pain at times when prolonged standing. She also had an episode where she felt her knees locked up and she had a fall. She fell into her linen closet and she says it took or an hour to extricate herself. She does not recall any particular injuries that were incurred with that fall, it was just the great difficulty getting out of the situation that was most upsetting to her. She do es live alone. She has not had any subsequent falls. [facility] Medical History (Updated 05/29/23 @ 13:29 by Jun Lucero MD) Unsteady gait Hypertension History of [place] (myocardial infarction) Osteoporosis Allergic rhinitis Hyperlipidemia Seropositive rheumatoid arthritis Surgical History History of right hemicolectomy History of parathyroidectomy Social History Alcohol intake: current Patient Tobacco Use Status: Former Tobacco user Tobacco use type: Cigarette Review of Systems Const Details: Negative for appetite change, weight change, fever, chills, malaise and fatigue Eyes Details: Negative for vision change, dry eyes,headaches and dizziness ENT Details: Negative for hearing change, tinnitus, oral ulcer, nose bleeds and oral dryness. Card Details: Negative chest pain, edema and syncope Resp Details: Negative for SOB, cough and wheezing GI Details: Negative indigestion/heartburn, nausea, abdominal pain, bowel changes, diarrhea, constipation and bloody stool. Neuro Details: She had the fall as noted above. Negative for epilepsy, palsy, stroke, changes in speech, tingling and weakness Rubin/Lymph Details: Negative for excessive bruising or bleeding. Physical Exam Vital Signs: Last Vital Signs Temp 97.9 F 05/29/23 11:31 Pulse 97 05/29/23 11:31 BP 104/70 05/29/23 11:31 Pulse Ox 98 05/29/23 11:31 Oxygen Delivery Method Room Air 05/29/23 11:31 BMI result Body Mass Index 21.2 APPEARANCE: Patient in no acute distress EYES no redness, pupils equal and reactive to light, eyelids normal. No temporal artery tenderness, redness or swelling. EXTREMITIES: No edema, no calf tenderness, normal peripheral pulses. NEURO: Oriented and alert x3. No focal weakness. Reflexes symmetric. Gait normal. SKIN: No inflammatory or neoplastic lesions. Normal color and turgor JOINT EXAM: Cervical Spine:? Full range of motion with slight discomfort.? No tenderness. Thoracic Spine:? No scoliosis.? No tenderness on palpation. Lumbar Spine:? Alignment normal.? Mild pain with extremes of motion.? No tenderness. Chest Wall:.? No tenderness, swelling, increased warmth or erythema. Hands:? Right:? There is mild swelling in all of the MCP joints. The 1st has mild tenderness. There is some flexion deformity and ulnar deviation as well.? There is some soft tissue swelling and bony enlargement in the PIP joints. The 2nd has mild tenderness. There is mild bony enlargement without tenderness at the 3rd and 5th DIP joints.? No flexor tendon triggering, thenar atrophy or sensory loss.? Left:? Mild pain with range of motion at the thumb and 5th finger.? There is mild swelling with ulnar deviations of all the MCP joints, the 1st MCP is mildly tender today.? There is mild soft tissue swelling of the 2nd, 3rd and 4th PIP's and the 3rd has mild I tenderness.? There is no flexor tendon triggering or tenderness, thenar atrophy or sensory loss. Wrists:? Right: The patient has mild pain with flexion extension at 75 degrees with a small cyst over the dorsum is nontender. This looks like a ganglion cyst. Left: Pain-free range of motion to 75 degrees without swelling or tenderness. Elbows:. Normal pain-free range of motion without tenderness, swelling, increased warmth or erythema. Shoulders:.?? Full range of motion without pain. No tenderness, weakness, swelling, increased warmth or erythema. Hips:? Right:? Slight decrease in extremes of internal external rotation but no pain with motion.? No groin tenderness or mass.? Left:? Full range of motion without pain. Hip bursa:.? Mild left trochanteric tenderness. Knees:?? Normal pain-free range of motion with mild patellofemoral crepitus.? There is some slight medial tenderness but no effusion, soft tissue swelling, increased warmth or erythema.? Ankles:? Right: Normal pain-free range of motion with mild medial and lateral tenderness but no swelling, increased warmth or erythema. Left: Pain-free range of motion without tenderness or swelling. Feet:?Mild 1st MTP bony enlargement bilaterally without tenderness.? The other joints in the foot have normal pain-free range of motion without tenderness, swelling, increased warmth or erythema. Tender points:?No tenderness to digital palpation at the occiput, trapezius, second rib, lateral epicondyle, knees, greater trochanter and gluteal area bilaterally. ? Results Reviewed Results Reviewed: Laboratory Tests 03/31/23 11:50 WBC 6.5 Hgb 13.6 ESR 20 Creatinine 0.68 AST 27 ALT 24 C-Reactive Protein < 0.10 Assessment & Plan Assessment & Plan (1) Osteoporosis: Comment: right humeral and lumbar compression fractures(vertebroplasty) - 2008 DEXA 08/2020 Tscores: LS spine: -0.7; L hip: -3.6 alendronate started 11/2021 Code(s): M81.0 - Age-related osteoporosis without current pathological fracture (2) parts counterman methotrexate user: Code(s): Z79.899 - Other roasterman (current) drug therapy (3) Seropositive rheumatoid arthritis: Comment: Onset 2013.RF, SUJEY, CCP, SS-A pos GI ulcer on Plaquenil -stopped. leflunomide caused BP elevation - stopped. methotrexate started early 2020 Code(s): M05.9 - Rheumatoid arthritis with rheumatoid factor, unspecified Plan Rheumatoid arthritis with still some ulnar deviation and slight thickening in the MCP joints but they are not particularly tender at this juncture. She does not seem to have any side effects we could relate to the methotrexate and pending the lab work we will stay with 20 mg weekly. She is also on the alendronate for her osteoporosis which initially seemed to cause some stomach upset but not recently. This is given for her osteoporosis. We talked about her fall. It sounds as if she might have had some knee or leg pain that preceded it. I told her that she should try to obtain an alert system that she can have in the home to contact family members if she finds she can not get up after a fall. Additionally I think physical therapy would be helpful for her to try to improve muscle strength and balance. She says she is going to see a doctor about that in the next week or 2. We will check lab work today and try to get her to get another set of labs done before next visit in 3 months. Coding Level of Care Code Est Pt Level 3 (25501) Diagnoses Osteoporosis M81.0 parts counterman methotrexate user Z79.899 Seropositive rheumatoid arthritis M05.9
== END 2023-05-29 13:02 | disposition home or self-care (01) ==
PROVIDERS: PCP Internal Medicine; Visit Provider Internal Medicine Rheumatology
DX: M05.79 Rheumatoid arthritis with rheumatoid factor of multiple sites without organ or systems involvement (principal); M81.0 Age-related osteoporosis without current pathological fracture; Z79.899 Other long term (current) drug therapy
CPT/HCPCS: 99213

== ENCOUNTER → 2023-05-29 11:30 | Outpatient (BNVA) | payer MEDICARE, SELFPAY | PROVIDERS: PCP Internal Medicine; Visit Provider Internal Medicine Rheumatology | DX: M81.0 Age-related osteoporosis without current pathological fracture (principal); M05.9 Rheumatoid arthritis with rheumatoid factor, unspecified; Z79.899 Other long term (current) drug therapy | CPT/HCPCS: 99212 ==

== ENCOUNTER 2023-06-06 14:58 | Outpatient (REF) | payer MEDICARE, SELFPAY ==
--- NOTE | ~2023-06-06 | US_ITS ---
EXAMINATION: US RETROPERITONEAL COMPLETE (RENAL) CLINICAL INFORMATION: Calculus of kidney. COMPARISON: Ultrasound retroperitoneal limited 05/09/2021 and 05/01/2020. CT abdomen and pelvis 02/12/2016. TECHNIQUE: Real-time imaging of the kidneys and bladder. Technically limited study secondary to body habitus. FINDINGS: RIGHT KIDNEY: 10.7 x 5.5 x 4.7 cm (SAG x AP x TRV). The kidney is normal in size, contour, and echogenicity. Renal cortical thickness is normal. No calculi or focal parenchymal lesions. No hydronephrosis. LEFT KIDNEY: 11.1 x 5.4 x 3.9 cm (SAG x AP x TRV). The kidney is normal in size, contour, and echogenicity. Renal cortical thickness is normal. No hydronephrosis. Benign-appearing renal cyst measuring 0.7 cm. No follow up imaging is recommended. 2 mm nonobstructing mid pole renal stone. BLADDER: Well distended. Bilateral ureteral jets are demonstrated. Prevoid bladder volume is 186 mL. Postvoid bladder volume is 68.8 mL. A 2.3 cm stone in the bladder versus clustered multiple stones. US/US retroperitoneal comp IMPRESSION: 1. A 2.3 cm stone in the bladder versus clustered multiple stones. 2. A 2 mm nonobstructing left renal stone. 3. Small postvoid bladder residual of 68.8 mL.
== END 2023-06-06 14:59 | disposition home or self-care (01) ==
LOC: HO.US 14:58
PROVIDERS: PCP Internal Medicine; Visit Provider Nurse Practitioner Family
DX: N20.0 Calculus of kidney (principal); N39.0 Urinary tract infection, site not specified; R32 Unspecified urinary incontinence
CPT/HCPCS: 76770

== ENCOUNTER 2023-07-02 13:10 | Outpatient (AMB) | payer MEDICARE, SELFPAY ==
--- NOTE | 2023-07-02 13:20 | A.OFFVIS_ITS ---
Intake Intake Visit Reasons: 6w/US/PVR(set) Intake Note: Patient presents for follow up for incontinence/ultrasound (imaging 06/06/23) Urology Medications: tolterodine Blood thinner: aspirin PVR: 0ml's Informatics Pharmacist Required: No Accompanied by: Self / Same As Patient Allergies wine spirit Allergy (Severe, Verified 07/02/23 14:09) triangle rash on codeine Allergy (Intermediate, Verified 07/02/23 14:09) Vomiting penicillin V Allergy (Intermediate, Verified 07/02/23 14:09) Rash mold Allergy (Intermediate, Uncoded 07/02/23 14:09) Rash mildew Allergy (Mild, Uncoded 07/02/23 14:09) rash Medication List - Last Reconciled 07/02/23 by MARY Bernal- alendronate 70 mg PO QWEEK aspirin 81 mg PO DAILY atorvastatin 40 mg PO BEDTIME cane As directed famotidine 20 mg PO BID PRN folic acid 1 mg PO DAILY loratadine 10 mg PO DAILY PRN losartan 50 mg PO DAILY methotrexate sodium 20 mg (8 x 2.5 mg) PO QWEEK triamcinolone acetonide 0.1% 1 appl topical BID-TID HPI HPI Comments History of Present Illness Details Yuly is a very pleasant 83-year-old female patient of Dr. Petty was accompanied by her son at today's office visit. She has a past medical history of allergic rhinitis, history of [place] stented in 2019, hyperlipidemia, hypertension, osteoporosis, seropositive rheumatoid arthritis, and unsteady gait. She presents to the office today for a follow up of her lower urinary tract symptoms. Of note, patient was seen approximately 6 weeks ago at which time a retroperitoneal ultrasound was ordered for further assessment evaluation. These results were reviewed with the patient today. A 2.3 cm stone in the bladder versus clustered multiple stones. A 2 mm nonobstructing left renal calculi is noted. Small postvoid residual of approximately 70 mL. Discussed further assessment evaluation of bladder stone with in office cystoscopy. During last office visit patient was started on tolterodine 2 mg daily. In discussion with the patient today she reports noting no improvement lower urinary tract symptoms (urinary urgency, urinary frequency, and mixed urinary incontinence) and discusses how expensive the medication was. Discussed trial of other overactive bladder medication however patient does not wish to at this time. Patient has also trialed Toviaz in the past with no improvement in lower urinary tract symptoms. She reports having had multiple urologists in the past including Dr. Casanova as well as Dr. Davalos. She discusses having had a a an office cystoscopy in the past however does not recall exactly why they were performed. She denies any previous surgical history for nephrolithiasis. She reports utilizing approximately 3 Guillermina pads and liners a day. She denies having trialled any lifestyle modifications and or medications in the past. When asked she denies hematuria, dysuria, foul smelling urine, changes to urinary stream, flank pain, fever, and or chills. Unable to obtain urine for urinalysis however PVR 0 mL PVR 54 mL. Discussed at length lifestyle modifications, pelvic floor therapy, and or trial of medications. She otherwise offers no issues or concerns at this time. [facility] Medical History Unsteady gait Hypertension History of SC (myocardial infarction) Osteoporosis Allergic rhinitis Hyperlipidemia Seropositive rheumatoid arthritis Surgical History History of right hemicolectomy History of parathyroidectomy Social History Alcohol intake: current Patient Tobacco Use Status: Former Tobacco user Tobacco use type: Cigarette Review of Systems Const Reports as per HPI Eyes Reports no additional complaints ENT Reports no additional complaints Card Reports as per HPI Resp Reports no additional complaints GI Reports no additional complaints Reports as per HPI Musc Reports as per [facility] Neuro Reports as per HPI Psych Reports no additional complaints Endo Reports no additional complaints Aller/Immun Reports as per HPI Physical Exam Const General: cooperative, healthy appearing, comfortable, no acute distress, well developed, alert and awake Orientation/consciousness: patient oriented x3 Limitations: ambulation with cane HEENT Head: Yes normal to inspection, Yes normocephalic and Yes atraumatic Ears: hearing grossly normal bilaterally Eyes General: appearance normal, both eyes and all related structures Neck Neck: Yes normal visual inspection and Yes trachea midline Chest Chest palpation & inspection: normal inspection of the chest Resp Effort & Inspection: normal respiratory effort and able to speak in complete sentences Cardio Rate: regular rate GI Inspection: Yes normal to inspection General: Yes no CVA tenderness Back/Spine/Pelvis Back: no CVA tenderness Skin General skin exam: no rashes or lesions noted Neuro General: patient oriented x3 Extrem General: Yes normal to inspection Psych Appearance: grossly normal and well kempt Mental Status: mental status grossly normal Speech and movement: Normal speech and movement present and Clear speech present Affect: normal affect Attitude: cooperative Thought process: Normal thought process present Thought content: Normal thought content present Insight: Good insight present (Psych) Judgement: Good judgement present (Psych) Office Procedures Post Void Residual Post Residual Void Post Void Residual (PVR): 0 [id number] Void Residual by ultrasound Results Reviewed Results Reviewed: Date of Service: 06/06/23 EXAMINATION: US RETROPERITONEAL COMPLETE (RENAL) FINDINGS: RIGHT KIDNEY: 10.7 x 5.5 x 4.7 cm (SAG x AP x TRV). The kidney is normal in size, contour, and echogenicity. Renal cortical thickness is normal. No calculi or focal parenchymal lesions. No hydronephrosis. LEFT KIDNEY: 11.1 x 5.4 x 3.9 cm (SAG x AP x TRV). The kidney is normal in size, contour, and echogenicity. Renal cortical thickness is normal. No hydronephrosis. Benign-appearing renal cyst measuring 0.7 cm. No follow up imaging is recommended. 2 mm nonobstructing mid pole renal stone. BLADDER: Well distended. Bilateral ureteral jets are demonstrated. Prevoid bladder volume is 186 mL. Postvoid bladder volume is 68.8 mL. A 2.3 cm stone in the bladder versus clustered multiple stones. IMPRESSION: 1. A 2.3 cm stone in the bladder versus clustered multiple stones. 2. A 2 mm nonobstructing left renal stone. 3. Small postvoid bladder residual of 68.8 mL. Assessment & Plan Assessment & Plan (1) Nephrolithiasis: Code(s): N20.0 - Calculus of kidney (2) Urinary incontinence: Code(s): R32 - Unspecified urinary incontinence (3) Lower urinary tract symptoms: Code(s): R39.9 - Unspecified symptoms and signs involving the genitourinary system (4) Bladder stone: Code(s): N21.0 - Calculus in bladder Plan Unable to obtain urine for urinalysis however PVR 0 mL. Discussed recent retroperitoneal ultrasound results; as noted above. Start vitamin B6 as discussed and prescribed. Stop tolterodine Discussed at length lifestyle modifications, pelvic floor therapy, and or medications to assist with urinary incontinence. Discussed at length importance of drinking plenty of water daily. Discussed adding 1 oz of lemon juice to water daily. Follow-up in the office cystoscopy for further assessment evaluation; or sooner with any issues, concerns, and or questions Orders: Orders AMB Post Void Residual by ultrasound Today R32 - Unspecified urinary incontinence Medications: New pyridoxine (vitamin B6) 100 mg PO DAILY 90 tabs 1RF 90 days Discontinued tolterodine ER Discontinued Reason: Doctor's Order 2 mg PO DAILY 30 days 30 caps 1RF R39.15 - Urgency of urination Patient Instructions: The patient had an opportunity to ask questions regarding the treatment plan. All questions were answered. Physical exam, labs, and imaging were discussed and reviewed in detail. As well as risks, benefits, and discussion of treatment choices. No major barriers to understanding were identified. The patient expressed understanding and agreement with the above treatment plan. The patient was made aware they should contact our office by phone for worsening of their current condition, the appearance of new symptoms, or with any questions or concerns. Compliance is encouraged with any medications and follow up testing that is ordered. It is a privilege to be allowed the opportunity to participate in? your urological care.? Again, if you have any questions or concerns If you have any questions or concerns please do not hesitate to contact me. The office is [phone]. This note is constructed using voice recognition software. While every effort has been made to ensure accuracy hearing aid specialist errors may have been included. Yours sincerely, EWA Bernal Coding Level of Care Code Est Pt Level 4 (05370) Diagnoses Nephrolithiasis N20.0 Urinary incontinence R32 Lower urinary tract symptoms R39.9 Bladder stone N21.0 CPT Codes Post Residual Void - PVR CPT Code: 08445-Xndq Void Residual by ultrasound ([id number])
== END 2023-07-02 14:06 | disposition home or self-care (01) ==
PROVIDERS: PCP Internal Medicine; Visit Provider Nurse Practitioner Family
DX: N20.0 Calculus of kidney (principal); R32 Unspecified urinary incontinence; R39.9 Unspecified symptoms and signs involving the genitourinary system; N21.0 Calculus in bladder
CPT/HCPCS: 99214

== ENCOUNTER → 2023-07-02 13:10 | Outpatient (BNVA) | payer MEDICARE, SELFPAY | PROVIDERS: PCP Internal Medicine; Visit Provider Nurse Practitioner Family | DX: N20.0 Calculus of kidney (principal); N21.0 Calculus in bladder; R32 Unspecified urinary incontinence; R39.9 Unspecified symptoms and signs involving the genitourinary system | CPT/HCPCS: 51798; 99212 ==

== ENCOUNTER 2023-08-07 10:46 | Outpatient (AMB) | payer MEDICARE, SELFPAY ==
--- NOTE | 2023-08-07 10:54 | MHC.OFFVIS ---
Intake Intake Visit Reasons: cysto Intake Note: Patient presents today for a CYSTOSCOPY Procedure: Meds: Vit B6 Allergies to Antibiotic: Penicillin Blood Thinner: Asprin Urinalysis test cleared for Cysto Disposable Uro-G Cystoscope Cannula: Lot: [id number] Exp: 12/15/2024 Hedge Fund Manager Required: No Accompanied by: Self / Same As Patient Allergies wine spirit Allergy (Severe, Verified 08/07/23 11:51) triangle rash on codeine Allergy (Intermediate, Verified 08/07/23 11:51) Vomiting penicillin V Allergy (Intermediate, Verified 08/07/23 11:51) Rash mold Allergy (Intermediate, Uncoded 08/07/23 11:51) Rash mildew Allergy (Mild, Uncoded 08/07/23 11:51) rash HPI HPI Comments History of Present Illness Details 08/07/23-- Yuly is here for office cysto. Review of chart: LV: 07/02/23---Yuly is a very pleasant 83-year-old female patient of Dr. Petty was accompanied by her son at today's office visit. She has a past medical history of allergic rhinitis, history of [place] stented in 2019, hyperlipidemia, hypertension, osteoporosis, seropositive rheumatoid arthritis, and unsteady gait. She presents to the office today for a follow up of her lower urinary tract symptoms. Of note, patient was seen approximately 6 weeks ago at which time a retroperitoneal ultrasound was ordered for further assessment evaluation. These results were reviewed with the patient today. A 2.3 cm stone in the bladder versus clustered multiple stones. A 2 mm nonobstructing left renal calculi is noted. Small postvoid residual of approximately 70 mL. Discussed further assessment evaluation of bladder stone with in office cystoscopy. During last office visit patient was started on tolterodine 2 mg daily. In discussion with the patient today she reports noting no improvement lower urinary tract symptoms (urinary urgency, urinary frequency, and mixed urinary incontinence) and discusses how expensive the medication was. Discussed trial of other overactive bladder medication however patient does not wish to at this time. Patient has also trialed Toviaz in the past with no improvement in lower urinary tract symptoms. She reports having had multiple urologists in the past including Dr. Casanova as well as Dr. Davalos. She discusses having had a a an office cystoscopy in the past however does not recall exactly why they were performed. She denies any previous surgical history for nephrolithiasis. She reports utilizing approximately 3 Guillermina pads and liners a day. She denies having trialled any lifestyle modifications and or medications in the past. When asked she denies hematuria, dysuria, foul smelling urine, changes to urinary stream, flank pain, fever, and or chills. Unable to obtain urine for urinalysis however PVR 0 mL PVR 54 mL. Discussed at length lifestyle modifications, pelvic floor therapy, and or trial of medications. She otherwise offers no issues or concerns at this time. 08/07/23-- I reviewed renal US results with the patient left kidney stone 2 mm and bladder calcifications noted Consent obtained for office cysto--Cystoscopy findings: few eggshell-like calcifications noted at the base of bladder, freely moveable and likely to pass with voided urine; no suspicious bladder lesions visualized PLAN: Patient encouraged to increase fluid intake and add lemon to the water as previously discussed. FU with CARIE Grigsby in 6 weeks [facility] Medical History Unsteady gait Hypertension History of [place] (myocardial infarction) Osteoporosis Allergic rhinitis Hyperlipidemia Seropositive rheumatoid arthritis Surgical History History of right hemicolectomy History of parathyroidectomy Social History Alcohol intake: current Patient Tobacco Use Status: Former Tobacco user Tobacco use type: Cigarette Review of Systems Const Reports as per [facility] Eyes Reports no additional complaints ENT Reports no additional complaints Card Reports as per [facility] Resp Reports no additional complaints GI Reports no additional complaints Reports as per HPI Musc Reports as per [facility] Neuro Reports as per HPI Psych Reports no additional complaints Endo Reports no additional complaints Aller/Immun Reports as per [facility] Office Procedures Cystoscopy Consent Discussed risk and benefit or proposed procedure with the patient. Information consent for procedure given to the patient. Discussed technical aspects, risks, benefits and alternatives in full. Addressed all of the patient's questions and concerns regarding the procedure. The patient demonstrated knowledge and understanding. They wish to proceed with this procedure. Preparation The patient was prepped in the usual manner. A slice cutting machine operator was present and in the room. Genitalia was prepped with betadine solution in a sterile manner. Lidocaine Jelly 2% was placed into the urethra and 16Fr flexible Olympus cystoscope was inserted into the meatus after adequate lubrication. Procedure Time out per protocol performed. Bladder Inspection Bladder Inspection: The bladder was inspected in its entirety with utilization retroflexion displaying: Tumor(s): none visualized Trabeculation: mild Mucosal Erthema: mild Orifices: normal shape and position Urethra: normal Cystoscopy findings: few eggshell-like calcifications noted at the base of bladder, freely moveable and likely to pass with voided urine; no suspicious bladder lesions visualized [id number] DISPOSABLE SCOPE URO-G FLEXIBLE SCOPE Procedure code (CPT) selection complete Office Meds lidocaine HCl 2 % mucosal jelly in applicator Performing Provider: Deven Olson MD Performing Location: [facility] Administered by: Jess Wick RN on 08/07/23 11:48 Dose Route Admin Location Dispensed Lot Number Expiration Date ND Dealership Manager 10 mL intra-urethral 20 mL naproxen 500 mg tablet Performing Provider: Deven Olson MD Performing [facility] Administered by: Jess Wick RN on 08/07/23 11:48 Dose Route Admin Location Dispensed Lot Number Expiration Date NDC Dealership Manager 500 mg PO 1 tab ciprofloxacin HCl 500 mg tablet Performing Provider: Deven Olson MD Performing Location[facility] Administered by: Jess Wick RN on 08/07/23 11:48 Dose Route Admin Location Dispensed Lot Number Expiration Date NDC Dealership Manager 500 mg PO 1 tab Results AMB Urinalysis, Automated UA Leukoctes 0 Opal/uL Last Edit by HERLINDA Alejandro on 08/07/23 11:50 UA Nitrite Negative Last Edit by HERLINDA Alejandro on 08/07/23 11:50 UA Urobilinogen 0.2 mg/dL Last Edit by HERLINDA Alejandro on 08/07/23 11:50 UA Protein 15 mg/dL Last Edit by HERLINDA Alejandro on 08/07/23 11:50 UA pH 6.0 Last Edit by HERLINDA Alejandro on 08/07/23 11:50 UA Blood 0 Jair/uL Last Edit by HERLINDA Alejandro on 08/07/23 11:50 UA Specific [place] 1.025 Last Edit by HERLINDA Alejandro on 08/07/23 11:50 UA Ketone Negative Last Edit by HERLINDA Alejandro on 08/07/23 11:50 UA Bilirubin 0 mg/dL Last Edit by HERLINDA Alejandro on 08/07/23 11:50 UA Glucose 0 mg/dL Last Edit by HERLINDA Alejandro on 08/07/23 11:50 Results Reviewed Results Reviewed: Laboratory Last Values Urine pH (Auto) 6.0 08/07/23 10:55 Specific [place] (Auto) 1.025 08/07/23 10:55 Urine Protein (Auto) 15 mg/dL 08/07/23 10:55 Glucose (UA)(Auto) 0 mg/dL 08/07/23 10:55 Urine Ketones (Auto) Negative 08/07/23 10:55 Urine Blood (Auto) 0 Jair/uL 08/07/23 10:55 Urine Nitrite (Auto) Negative 08/07/23 10:55 Urine Bilirubin (Auto) 0 mg/dL 08/07/23 10:55 Urine Urobilinogen (Auto) 0.2 mg/dL 08/07/23 10:55 Leukocyte Esterase (Auto) 0 Opal/uL 08/07/23 10:55 Date of Service: 06/06/23 EXAMINATION: US RETROPERITONEAL COMPLETE (RENAL) CLINICAL INFORMATION: Calculus of kidney. COMPARISON: Ultrasound retroperitoneal limited 05/09/2021 and 05/01/2020. CT abdomen and pelvis 02/12/2016. TECHNIQUE: Real-time imaging of the kidneys and bladder. Technically limited study secondary to body habitus. FINDINGS: RIGHT KIDNEY: 10.7 x 5.5 x 4.7 cm (SAG x AP x TRV). The kidney is normal in size, contour, and echogenicity. Renal cortical thickness is normal. No calculi or focal parenchymal lesions. No hydronephrosis. LEFT KIDNEY: 11.1 x 5.4 x 3.9 cm (SAG x AP x TRV). The kidney is normal in size, contour, and echogenicity. Renal cortical thickness is normal. No hydronephrosis. Benign-appearing renal cyst measuring 0.7 cm. No follow up imaging is recommended. 2 mm nonobstructing mid pole renal stone. BLADDER: Well distended. Bilateral ureteral jets are demonstrated. Prevoid bladder volume is 186 mL. Postvoid bladder volume is 68.8 mL. A 2.3 cm stone in the bladder versus clustered multiple stones. IMPRESSION: 1. A 2.3 cm stone in the bladder versus clustered multiple stones. 2. A 2 mm nonobstructing left renal stone. 3. Small postvoid bladder residual of 68.8 mL. Assessment & Plan Assessment & Plan (1) Nephrolithiasis: Code(s): N20.0 - Calculus of kidney (2) Urinary incontinence: Code(s): R32 - Unspecified urinary incontinence Plan Patient encouraged to increase fluid intake and add lemon to the water as previously discussed. FU with CARIE Grigsby in 6 weeks Orders: Orders AMB Urinalysis Automated Today Z13.9 - Encounter for screening, unspecified AMB Cystoscopy Today R32 - Unspecified urinary incontinence Patient Instructions: The patient had an opportunity to ask questions regarding treatment plan. All questions were answered. Imaging, Laboratory studies and physical exam results were discussed and reviewed in detail. No major barriers to understanding were identified. The patient expressed understanding and agreement with the above treatment plan. The patient is aware they should contact our office by phone for worsening of their current condition or the appearance of new symptoms. Compliance is encouraged with any medications and followup testing that is ordered. It is a privilege to be allowed the opportunity to participate in the urologic care of your patient. If you have any questions or concerns regarding treatment for the above conditions please do not hesitate to contact me. The office telephone contact is [phone]. This note is constructed in part using voice recognition software. While every effort has been made to ensure accuracy city treasurer errors may have been included. Yours sincerely, Deven Olson MD Coding Level of Care Code Procedure Only Diagnoses Nephrolithiasis N20.0 Urinary incontinence R32 CPT Codes Cystoscopy - CPT: [id number] ([id number])
== END 2023-08-07 12:19 | disposition home or self-care (01) ==
PROVIDERS: PCP Internal Medicine; Visit Provider Urology
DX: N20.0 Calculus of kidney (principal); N21.0 Calculus in bladder; R32 Unspecified urinary incontinence; Z13.9 Encounter for screening, unspecified
CPT/HCPCS: 52000

== ENCOUNTER → 2023-08-07 10:46 | Outpatient (BNVA) | payer MEDICARE, SELFPAY | PROVIDERS: PCP Internal Medicine; Visit Provider Urology | DX: N20.0 Calculus of kidney (principal); R32 Unspecified urinary incontinence | CPT/HCPCS: 52000; 81003 ==

== ENCOUNTER 2023-10-21 10:42 | Outpatient (AMB) | payer MEDICARE, SELFPAY ==
--- NOTE | 2023-10-21 10:52 | MHC.OFFVIS ---
Intake Vital Signs 10/21/23 10:53 Height 5 ft 3 in Weight 118 lb 13.266 oz BMI 21.0 BP 140/76 H Blood Pressure Location Rt brachial Position Sitting Pulse 72 Pulse Source Pulse Oximeter Pulse Oximetry (%) 96 Oxygen Delivery Method Room Air Intake Visit Reasons: ra with dr Lindasy Gray Note: Patient reports cracking sounds coming out of her head, R side. Constant headaches Tailercpa Required: No Accompanied by: Self / Same As Patient Allergies wine spirit Allergy (Severe, Verified 10/21/23 10:56) triangle rash on codeine Allergy (Intermediate, Verified 10/21/23 10:56) Vomiting penicillin V Allergy (Intermediate, Verified 10/21/23 10:56) Rash mold Allergy (Intermediate, Uncoded 10/21/23 10:56) Rash mildew Allergy (Mild, Uncoded 10/21/23 10:56) rash Medication List - Last Reconciled 10/21/23 by Yevgeniy Guy MD alendronate 70 mg PO QWEEK aspirin 81 mg PO DAILY atorvastatin 40 mg PO BEDTIME cane As directed famotidine 20 mg PO BID PRN folic acid 1 mg PO DAILY loratadine 10 mg PO DAILY PRN losartan 50 mg PO DAILY methotrexate sodium 20 mg (8 x 2.5 mg) PO QWEEK pyridoxine (vitamin B6) 100 mg PO DAILY 90 days triamcinolone acetonide 0.1% 1 appl topical BID-TID HPI HPI Comments History of Present Illness Details This is an 83-year-old female with seropositive RA who returns for follow-up. She was last seen by Dr. Lucero 05/2023. This is her 1st visit with me. Patient states that over the last few months she had a few episodes where she feels that the right side of the top of her head posteriorly starts to crack this lasts a few seconds is associated with a mild headache but not associated with any other symptoms such as muscle weakness or numbness or blurry vision or change in her hearing. She states that her neck has been cracking for years but she feels this cracking of her head is new. With regards to her joints, the feel about the same overall. She is working with PT to strengthen her legs. She remains on methotrexate 20 mg weekly and folic acid 1 mg daily [facility] Medical History Unsteady gait Hypertension History of [place] (myocardial infarction) Osteoporosis Allergic rhinitis Hyperlipidemia Seropositive rheumatoid arthritis Surgical History History of right hemicolectomy History of parathyroidectomy Social History Alcohol intake: current Patient Tobacco Use Status: Former Tobacco user Tobacco use type: Cigarette Review of Systems Const Reports headache(s) and Denies weakness ENT Reports Normal hearing present, Reports headache(s) and Reports neck pain Musc Reports arthralgias, Reports neck pain, Reports numbness and Reports stiffness Neuro Reports no additional complaints, Reports Normal hearing present, Reports headache(s), Reports numbness, Denies Other visual disturbances, Denies Sensory deficit (Neuro) and Denies weakness Physical Exam Vital Signs: Last Vital Signs Pulse 72 10/21/23 10:53 BP 140/76 H 10/21/23 10:53 Pulse Ox 96 10/21/23 10:53 Oxygen Delivery Method Room Air 10/21/23 10:53 BMI result Body Mass Index 21.0 Const General: cooperative, healthy appearing and comfortable Nutritional Appearance: average body habitus Orientation/consciousness: patient oriented x3 Limitations: ambulation with cane HEENT Head: Yes No palpable skull fracture present, Yes normocephalic, Yes atraumatic, No scalp tenderness and No Temporal artery tenderness present Mouth: moist mucous membranes Resp Effort & Inspection: normal respiratory effort and able to speak in complete sentences Cardio Rate: regular rate Neuro General: patient oriented x3 Cranial nerves: Yes Normal facial strength present, Yes Normal hearing present, Yes Ability to bilaterally rotate head present and Yes Ability to bilaterally elevate shoulders present Speech: No Expressive aphasia present Sensory Exam: No Sensory deficit (Neuro) Deep tendon reflexes (DTR's): Rt Biceps (C5, C6): 2+, Left biceps reflex intensity grade: 2+, Right patellar reflex intensity grade: 2+ and Left patellar reflex intensity grade: 2+ Extrem Other: Chronic RA deformities both hands Diffuse synovial thickening at the MCPs Ulnar deviation at the MCPs left hands No active synovitis Normal range of motion of hands, wrists, elbows and shoulders bilaterally Assessment & Plan Assessment & Plan (1) Seropositive rheumatoid arthritis: Comment: Onset 2013.++RF, +SUJEY, ++CCP, ++SS-A GI ulcer on Plaquenil -stopped. leflunomide caused BP elevation - stopped. methotrexate started early 2020 effective Code(s): M05.9 - Rheumatoid arthritis with rheumatoid factor, unspecified Plan: This is an 83-year-old female with seropositive RA who presents for follow-up. She used to follow-up with Dr. Lucero. This is her 1st visit with me. Her RA is well controlled with methotrexate 20 mg weekly plus folic acid 1 mg daily. 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 Symptoms lasting a few seconds without associated neurological symptoms. I do not see any signs suggestive of CVA upon my evaluation today. Advised patient to follow-up with her PCP Plan I spent 30 minutes reviewing patient's chart, evaluating patient, ordering diagnostic workup, counseling patient and documenting in the chart Orders: Orders C Reactive Protein 3 Months M05.9 - Rheumatoid arthritis with rheumatoid factor, unspecified, Z79.899 - Other parts counterman (current) drug therapy Complete Blood Count Auto Diff 3 Months M05.9 - Rheumatoid arthritis with rheumatoid factor, unspecified, Z79.899 - Other [facility] (current) drug therapy Comprehensive Met. Panel 3 Months M05.9 - Rheumatoid arthritis with rheumatoid factor, unspecified, Z79.899 - Other parts counterman (current) drug therapy Erythrocyte Sedimentation Rate 3 Months M05.9 - Rheumatoid arthritis with rheumatoid factor, unspecified, Z79.899 - Other [facility] (current) drug therapy Coding Level of Care Code Est Pt Level 4 (70411) Diagnoses Seropositive rheumatoid arthritis M05.9 care home methotrexate user Z79.899 Nonintractable headache, unspecified chronicity pattern, unspecified headache type R51.9 Headache type: unspecified Headache chronicity pattern: unspecified pattern Intractability: not intractable
[2023-10-21 10:53] VITALS: BP 140/76; PULSE 72; O2SAT 96; BMI 21.0
== END 2023-10-21 11:27 | disposition home or self-care (01) ==
LOC: HO.RHE 10:42
PROVIDERS: PCP Internal Medicine; Visit Provider Student in an Organized Health Care Education/Training Program
DX: M05.79 Rheumatoid arthritis with rheumatoid factor of multiple sites without organ or systems involvement (principal); Z79.899 Other long term (current) drug therapy; R51.9 Headache, unspecified
CPT/HCPCS: 99214

== ENCOUNTER → 2023-10-21 10:42 | Outpatient (BNVA) | payer MEDICARE, SELFPAY | PROVIDERS: PCP Internal Medicine; Visit Provider Student in an Organized Health Care Education/Training Program | DX: M05.9 Rheumatoid arthritis with rheumatoid factor, unspecified (principal); R51.9 Headache, unspecified; Z79.899 Other long term (current) drug therapy | CPT/HCPCS: 99212 ==

== ENCOUNTER 2024-01-14 09:32 | Outpatient (REF) | payer MEDICARE, SELFPAY ==
[2024-01-14 10:38] LABS: MANUAL DIFF FLAG NO
[2024-01-14 10:57] LABS: Basophils Percent Auto 0.5 % (0-2); Eosinophils Absolute Auto 0.1 X10*3/uL (0.0-0.4); Eosinophils Percent Auto 1.4 % (0-4); Hematocrit 40.9 % (37.0-47.0); Hemoglobin 13.8 g/dl (12.0-16.0); Imm Gran Abs Auto 0.03 X10*3/uL (0.00-0.03); Imm Gran Pct Auto 0.5 % (0.0-0.4); Lymphocytes Absolute Auto 1.2 X10*3/uL (1.2-4.9); Lymphocytes Percent Auto 21.3 % (20-40); Mean Corpuscular HGB Conc 33.7 g/dl (31.0-35.0); Mean Corpuscular Hemoglobin 31.9 pg (27.0-33.0); Mean Corpuscular Volume 94.5 fL (80.0-98.0); Mean Platelet Volume 9.6 fL (9.4-12.3); Monocytes Absolute Auto 0.5 X10*3/uL (0.1-1.2); Monocytes Percent Auto 8.1 % (2-11); Neutrophils Absolute Auto 3.8 x10*3/uL (2.0-8.3); Neutrophils Percent Auto 68.2 % (45-73); Platelet Count 300 X10*3/uL (160-400); Red Blood Count 4.33 X10*6/uL (4.20-5.50); Red Cell Distribution Width 14.3 % (11.0-16.0); White Blood Count 5.6 X10*3/uL (4.8-10.8)
[2024-01-14 11:29] LABS: Alanine Aminotransferase 11 U/L (0-31); Albumin Level 3.7 g/dL (3.5-5.0); Alkaline Phosphatase 99 U/L (39-117); Anion Gap 12 (12-20); Aspartate Amino Transferase 18 U/L (5-31); Bilirubin Total 0.4 mg/dL (0.0-1.0); Blood Urea Nitrogen 26 mg/dL (9-16); C Reactive Protein 0.19 mg/dL (< or = 0.50); Calcium 9.8 mg/dL (8.4-10.2); Carbon Dioxide 25 mmol/L (22-29); Chloride 108 mmol/L (96-108); Estimated Glomerular Filt Rate > 60; Glucose Random 80 mg/dL (60-115); Potassium 4.3 mmol/L (3.3-5.1); Sodium 141 mmol/L (135-145); Total Protein 6.8 g/dL (6.5-8.0)
[2024-01-14 11:50] LABS: Erythrocyte Sedimentation Rate 23 MM/HR (0-20)
== END 2024-01-14 09:33 | disposition home or self-care (01) ==
LOC: HO.10HDL 09:32
PROVIDERS: Visit Provider Student in an Organized Health Care Education/Training Program
DX: M05.9 Rheumatoid arthritis with rheumatoid factor, unspecified (principal); Z79.899 Other long term (current) drug therapy
CPT/HCPCS: 36415; 80053; 85025; 85652; 86140

== ENCOUNTER 2024-05-10 14:36 | Outpatient (REF) | payer MEDICARE, SELFPAY ==
[2024-05-10 16:15] LABS: MANUAL DIFF FLAG NO
[2024-05-10 17:03] LABS: Basophils Percent Auto 0.4 % (0-2); Eosinophils Absolute Auto 0.1 X10*3/uL (0.0-0.4); Eosinophils Percent Auto 1.3 % (0-4); Hematocrit 41.9 % (37.0-47.0); Hemoglobin 13.9 g/dl (12.0-16.0); Imm Gran Abs Auto 0.02 X10*3/uL (0.00-0.03); Imm Gran Pct Auto 0.4 % (0.0-0.4); Lymphocytes Absolute Auto 1.3 X10*3/uL (1.2-4.9); Lymphocytes Percent Auto 28.5 % (20-40); Mean Corpuscular HGB Conc 33.2 g/dl (31.0-35.0); Mean Corpuscular Hemoglobin 31.1 pg (27.0-33.0); Mean Corpuscular Volume 93.7 fL (80.0-98.0); Mean Platelet Volume 11.2 fL (9.4-12.3); Monocytes Absolute Auto 0.3 X10*3/uL (0.1-1.2); Monocytes Percent Auto 5.7 % (2-11); Neutrophils Absolute Auto 2.9 x10*3/uL (2.0-8.3); Neutrophils Percent Auto 63.7 % (45-73); Platelet Count 191 X10*3/uL (160-400); Red Blood Count 4.47 X10*6/uL (4.20-5.50); Red Cell Distribution Width 13.3 % (11.0-16.0); White Blood Count 4.5 X10*3/uL (4.8-10.8)
[2024-05-10 17:34] LABS: Alanine Aminotransferase 15 U/L (0-31); Albumin Level 3.7 g/dL (3.5-5.0); Alkaline Phosphatase 103 U/L (39-117); Anion Gap 13 (12-20); Aspartate Amino Transferase 24 U/L (5-31); Bilirubin Total 0.4 mg/dL (0.0-1.0); Blood Urea Nitrogen 23 mg/dL (9-16); C Reactive Protein 0.16 mg/dL (< or = 0.50); Calcium 9.9 mg/dL (8.4-10.2); Carbon Dioxide 21 mmol/L (22-29); Chloride 108 mmol/L (96-108); Estimated Glomerular Filt Rate > 60; Glucose Random 85 mg/dL (60-115); Potassium 4.5 mmol/L (3.3-5.1); Sodium 137 mmol/L (135-145)
[2024-05-10 17:43] LABS: Erythrocyte Sedimentation Rate 18 MM/HR (0-20)
[2024-05-11 04:44] LABS: HBS Num1 0.38 mIU/mL (0-7.99); HBsAGNum1 0.41 S/CO (0.00-0.99); Hepatitis A Antibody IgM 0.31 Index (0-0.79); Hepatitis B Core Antibody Nonreactive (Nonreactive); Hepatitis B Surface Antigen Negative (Negative); ~HepC Num1 0.23 S/CO (0.00-0.79); ~Hepatitis A Antibody IgM Nonreactive (Nonreactive); ~Hepatitis B Surface Antibody NONREACTIVE (Nonreactive); ~Hepatitis C Antibody Nonreactive (Nonreactive)
[2024-05-13 00:59] LABS: TS Negative Control Passed; TS Panel A 0; TS Panel B 1; TS Positive Control Passed; TSpotTB Negative (Negative)
== END 2024-05-10 14:37 | disposition home or self-care (01) ==
LOC: HO.LAB 14:36
PROVIDERS: PCP Internal Medicine; Visit Provider Student in an Organized Health Care Education/Training Program
DX: M05.9 Rheumatoid arthritis with rheumatoid factor, unspecified (principal); Z79.899 Other long term (current) drug therapy; Z11.59 Encounter for screening for other viral diseases; Z11.7 Encounter for testing for latent tuberculosis infection; R05.9 Cough, unspecified
CPT/HCPCS: 36415; 80053; 85025; 85652; 86140; 86481; 86704; 86706; 86709; 86803; 87340; 99212

== ENCOUNTER 2024-05-10 14:36 | Outpatient (AMB) | payer MEDICARE, SELFPAY ==
--- NOTE | 2024-05-10 14:45 | MHC.OFFVIS ---
Vital Signs 05/10/24 14:55 Weight 121 lb 0.54 oz BP 130/80 Blood Pressure Location Rt brachial Position Sitting Pulse 63 Pulse Source Pulse Oximeter Pulse Oximetry (%) 96 Intake Visit Reasons: LSS Intake Note: Patient presents for LSS. Allergies wine spirit Allergy (Severe, Verified 10/21/23 10:56) triangle rash on codeine Allergy (Intermediate, Verified 10/21/23 10:56) Vomiting penicillin V Allergy (Intermediate, Verified 10/21/23 10:56) Rash mold Allergy (Intermediate, Uncoded 10/21/23 10:56) Rash mildew Allergy (Mild, Uncoded 10/21/23 10:56) rash Medication List - Last Reconciled 05/10/24 by Yevgeniy Guy MD alendronate 70 mg PO QWEEK aspirin 81 mg PO DAILY cane As directed folic acid 1 mg PO DAILY losartan 50 mg PO ONCE methotrexate sodium 20 mg (8 x 2.5 mg) PO QWEEK triamcinolone acetonide 0.1% 1 appl topical BID-TID HPI Comments Details: This is an 83-year-old female with seropositive RA who returns for follow-up. She remains on methotrexate 20 mg once weekly. She states that has significant difficulty performing daily activities with her left hand. Such as writing. [facility] Medical History Unsteady gait Hypertension History of [place] (myocardial infarction) Osteoporosis Allergic rhinitis Hyperlipidemia Seropositive rheumatoid arthritis Surgical History History of right hemicolectomy History of parathyroidectomy Family History Sister Arthritis Social History Household Members: None Housing: House Alcohol intake: current Patient Tobacco Use Status: Former Tobacco user Tobacco use type: Cigarette Review of Systems [facility] Reports deformity, Reports arthralgias, Reports joint swelling and Reports stiffness Physical Exam Vital Signs: Last Vital Signs Pulse 63 05/10/24 14:55 BP 130/80 05/10/24 14:55 Pulse Ox 96 05/10/24 14:55 Const General: cooperative, healthy appearing and comfortable Nutritional Appearance: average body habitus Orientation/consciousness: patient oriented x3 Limitations: ambulation with cane HEENT Head: Yes normocephalic Resp Effort & Inspection: normal respiratory effort and able to speak in complete sentences Cardio Rate: regular rate Skin Other: Subtle rashes on forehead and cheeks Neuro General: patient oriented x3 Extrem Other: Chronic RA deformities both hands Diffuse synovial thickening at the MCPs Ulnar deviation at the MCPs left hands Mild left wrist swelling and tenderness Left 2nd MCP swelling and tenderness Assessment & Plan Assessment & Plan (1) Seropositive rheumatoid arthritis: Comment: Onset 2013.++RF, +SUJEY, ++CCP, ++SS-A GI ulcer on Plaquenil -stopped. leflunomide caused BP elevation - stopped. methotrexate started early 2020 effective Code(s): M05.9 - Rheumatoid arthritis with rheumatoid factor, unspecified Category: Medical Plan: This is an 83-year-old female with seropositive RA who presents for follow-up. He is on methotrexate 20 mg weekly plus folic acid 1 mg daily. Today she has mild synovitis affecting her left wrist and left 2nd MCP. Increase methotrexate to 25 mg once weekly split dose Continue folic acid 1 mg daily Patient complaining about losing her dexterity with her left hand. Patient has multiple deformities. I suggested evaluation by hand surgeon, patient will request a referral to Dr. Jean PCP Labs before next visit in 3 months (2) [facility] methotrexate user: Code(s): Z79.899 - Other long filler cigar roller machine (current) drug therapy Category: Medical Plan: Monitor safety labs Plan I spent 25 minutes reviewing patient's chart, evaluating patient, ordering diagnostic workup, counseling patient and documenting in the chart Orders: Orders C Reactive Protein Today M05.9 - Rheumatoid arthritis with rheumatoid factor, unspecified, Z79.899 - Other prison (current) drug therapy Complete Blood Count Auto Diff Today M05.9 - Rheumatoid arthritis with rheumatoid factor, unspecified, Z79.899 - Other long filler cigar roller machine (current) drug therapy Comprehensive Met. Panel Today M05.9 - Rheumatoid arthritis with rheumatoid factor, unspecified, Z79.899 - Other long filler cigar roller machine (current) drug therapy Erythrocyte Sedimentation Rate Today M05.9 - Rheumatoid arthritis with rheumatoid factor, unspecified, Z79.899 - Other prison (current) drug therapy Complete Blood Count Auto Diff Today M05.9 - Rheumatoid arthritis with rheumatoid factor, unspecified, Z79.899 - Other long filler cigar roller machine (current) drug therapy Comprehensive Met. Panel Today M05.9 - Rheumatoid arthritis with rheumatoid factor, unspecified, Z79.899 - Other prison (current) drug therapy Erythrocyte Sedimentation Rate Today M05.9 - Rheumatoid arthritis with rheumatoid factor, unspecified, Z79.899 - Other prison (current) drug therapy C Reactive Protein Today M05.9 - Rheumatoid arthritis with rheumatoid factor, unspecified, Z79.899 - Other long filler cigar roller machine (current) drug therapy Hepatitis A,B,C Profile Today Z11.59 - Encounter for screening for other viral diseases T Spot TB Today Z11.7 - Encounter for testing for latent tuberculosis infection Medications: Changed From methotrexate sodium 20 mg (8 x 2.5 mg) PO QWEEK 96 tabs 0RF M05.9 - Rheumatoid arthritis with rheumatoid factor, unspecified To methotrexate sodium 25 mg (10 x 2.5 mg) PO QWEEK 120 tabs 0RF M05.9 - Rheumatoid arthritis with rheumatoid factor, unspecified Coding Level of Care Code Est Pt Level 4 (15773) Diagnoses Seropositive rheumatoid arthritis M05.9 manager intermediate methotrexate user Z79.89
[2024-05-10 14:55] VITALS: BP 130/80; PULSE 63; O2SAT 96
== END 2024-05-10 15:26 | disposition home or self-care (01) ==
LOC: HO.RHE 14:37
PROVIDERS: PCP Internal Medicine; Visit Provider Student in an Organized Health Care Education/Training Program
DX: M05.79 Rheumatoid arthritis with rheumatoid factor of multiple sites without organ or systems involvement (principal); Z79.899 Other long term (current) drug therapy
CPT/HCPCS: 99214